=== PATIENT | male | born 1950 | race Caucasian/White ===

== ENCOUNTER → 2018-02-07 09:58 | Outpatient (CLI) | payer MEDICARE, OTHER, SELFPAY ==
--- NOTE | 2018-02-07 12:00 | PM.TREADMILL ---
Cardiac Stress Test Report Referral & Results Date Patient Seen: 02/07/18 Requesting provider: Josefina Abreu Rest ECG: Unremarkable Procedure Note: Today following both written and verbal informed consent, the patient was exercised according to a standard Rodrick protocol. The patient exercised for a total of 9 min 11 sec achieving a maximum heart rate of 138. Patient's maximum systolic blood pressure was 180. This was an estimated 10.1 MET's. There are no ST segment changes noted Patient was a bit hypertensive to start but overall his heart rate and blood pressure response both were normal Functional aerobic impairment rated-20% on the active scale or better than average Occasional PVCs including multifocal PVCs were identified. Rare PACs and actual what appeared to be brief runs of an SVT type dysrhythmia with 4-8 beats at the maximum were also identified Impression: No evidence of ischemia Excellent exercise capacity Dysrhythmia as above. Please note: Actual ECG tracings can be found in the PACS system.
== END ==
PROVIDERS: PCP Specialist; Visit Provider Specialist
DX: I49.3 Ventricular premature depolarization (principal); I49.1 Atrial premature depolarization; Z82.49 Family history of ischemic heart disease and other diseases of the circulatory system
CPT/HCPCS: 93016; 93017; 93018

== ENCOUNTER → 2018-06-06 12:38 | Outpatient (CLI) | payer MEDICARE, OTHER, SELFPAY ==
--- NOTE | 2018-06-06 | PATH_ITS ---
Note [facility] Accession Number: [id number] TESTS RESULT FLAG UNITS REF RANGE LAB Clinician Provided Cytology Information No. of containers..01 ThinPrep Vial No. of containers..00 Previously Prepared Cytology Slide RT THYROID NODULE DIAGNOSIS: RT THYROID NODULE NEGATIVE FOR MALIGNANT CELLS. SPECIMEN CONSISTS OF BENIGN FOLLICULAR CELLS, HEMOSIDERIN-LADEN MACROPHAGES, COLLOID, AND BLOOD. 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 Pathologist ICD10: 02 E04.1 02 Marvin Leach MD, Pathologist NPI- [id number] Sam Evangelista, Wedding Planner ([facility]) 01 30 CC, PINK, CLEAR aLSO REC'D 5 ALCOHOL FIXED, 5 QUICK STAINED SLIDES, AND 1RNA VIAL /MDA FLAG LEGEND: L-Low Normal,H-High Normal,LL-Alert Low,HH-Alert High <-Panic Low,>-Panic High,A-Abnormal,AA-Critical Abnormal Performed at: 01 =Z [facility] [address], [place] [address] Zackary Saldana MD, 02 [facility] [address] [place] [phone] Julee Knapp MD, Performed at: 01 [facility] [address], [place], [place] [id number] MD Zackary Saldana MD Phone: [phone]
--- NOTE | 2018-06-06 | DI.US.S_ITS ---
PROCEDURE: US FINE NEEDLE ASPIRATION INDICATIONS: Biopsy of 2 thyroid nodules, one on the right and one on the left. TECHNIQUE: The indications, alternatives, benefits, risks, and complications of the procedure were explained to the patient. Written informed consent was obtained and placed in the chart. The area of interest was examined sonographically and a site was chosen for ultrasound guided percutaneous sampling. The skin was prepared and draped in the usual fashion, and anesthetized with 1% lidocaine infiltrated from the skin down to the lesion. Multiple passes were then performed, with contents emptied into an appropriate pathology specimen container. A bandage was applied to the area of access at completion of the study. COMPARISON: None. FINDINGS: Location(s) of lesion(s) sampled: 1 on the right and one on the left. [place]: 25 gauge hypodermic needles, 5 on the right and 5 on the left. Number of passes: 5 on the right and 5 on the left Medications: 1% lidocaine for local anaesthesia. Complications: None. IMPRESSION: Successful ultrasound-guided bilateral fine needle aspiration, with cytology results pending. 2 separate nodules were performed in 2 separate procedures, with 5 needle passes on the right and 5 needle passes on the left. The nodule cytology will be reported separately for each of these 2 nodules. Dictated by: Tee Sullivan M.D. on 06/06/2018 at 14:54 Approved by: Tee Sullivan M.D. on 06/06/2018 at 14:57
--- NOTE | 2018-06-06 | PATH_ITS ---
Note [facility] Accession Number: [id number] TESTS RESULT FLAG UNITS REF RANGE LAB Clinician Provided Cytology Information No. of containers..01 ThinPrep Vial No. of containers..00 Previously Prepared Cytology Slide [A] 01 LT THYROID NODULE DIAGNOSIS: [A] 02 LT THYROID NODULE SUSPICIOUS FOR MALIGNANCY. IBVERY CELLULAR SPECIMEN WITH SOME COLLOID. 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 Pathologist ICD10: 02 E04.1 02 Marvin Leach MD, Pathologist NPI- [id number] Derrek Carlin, Insole Department Worker ([facility]) 01 20 CC, COLORLESS, CLEAR Also received 5 alcohol fixed, 5 quick stained slides, and 1 RNA vial /MDA FLAG LEGEND: L-Low Normal,H-High Normal,LL-Alert Low,HH-Alert High <-Panic Low,>-Panic High,A-Abnormal,AA-Critical Abnormal Performed at: 01 =Z [facility] [address], [place] [address] Zackary Saldana MD, 02 [facility] [address] [place] [phone] Julee Knapp MD, Performed at: 01 [facility] [address], [place], [place] [id number] MD Zackary Saldana MD Phone: [phone]
== END ==
PROVIDERS: PCP Specialist; Visit Provider Student in an Organized Health Care Education/Training Program
DX: E04.2 Nontoxic multinodular goiter (principal)
CPT/HCPCS: 10022; 76942